=== PATIENT | male | born 1950 | race Caucasian/White ===

== ENCOUNTER 2017-12-11 13:10 | Emergency (ER) | payer OTHER ==
[2017-12-11 13:44] VITALS: RESP 18
--- NOTE | 2017-12-11 14:04 | ED ---
Extremity Problem HPI - General Chief complaint: Extremity Problem,Nontraumatic Stated complaint: poss blood clot[facility] Time Seen by Provider: 12/11/17 13:52 Source: patient, RN notes reviewed Mode of arrival: ambulatory Limitations: no limitations - History of Present Illness Initial comments: This a 67-year-old male presents emergency Department chief complaint right leg pain. Patient states she's been having intermittent pain sometimes worse with movement. Patient states that [facility] told [facility] come in to rule out any evidence of blood clot. He states she's been off his Plavix or aspirin because he had recent surgery on his right carotid and he had a UTI that he hematuria. Patient states that he's had no prior DVTs. Denies any calf pain no leg swelling no discoloration. He states he does occasionally has a shooting pain and occasional paresthesia. Denies any back pain. - Related Data Home Medications Medication Instructions Recorded Confirmed Aspirin [Adult Low Dose Aspirin EC] 81 mg PO DAILY 12/11/17 12/11/17 Clopidogrel [Plavix] 75 mg PO DAILY 12/11/17 12/11/17 Enalapril [Vasotec] 2.5 mg PO DAILY 12/11/17 12/11/17 Furosemide [Lasix] 40 mg PO DIRECTED 12/11/17 12/11/17 Isosorbide Mononitrate [Isosorbide 30 mg PO DAILY 12/11/17 12/11/17 Mononitrate ER] Metoprolol Tartrate [Lopressor] 100 mg PO BID 12/11/17 12/11/17 Rosuvastatin Calcium [Crestor] 5 mg PO HS 12/11/17 12/11/17 Tamsulosin [Flomax] 0.4 mg PO DAILY 12/11/17 12/11/17 Allergies Allergy/AdvReac Type Severity Reaction Status Date / Time No Known Allergies Allergy Verified 12/11/17 14:07 Review of Systems ROS Statement: Those systems with pertinent positive or pertinent negative responses have been documented in the HPI. ROS Other: All systems not noted in ROS Statement are negative. Past Medical History Past Medical History: Coronary Artery Disease (CAD), Hypertension, Prostate Disorder Additional Past Medical History / Comment(s): "heart aneurism", edwards for urinary retention History of Any Multi-Drug Resistant Organisms: None Reported Past Surgical History: Appendectomy Additional Past Surgical History / Comment(s): carotids Past Psychological History: No Psychological Hx Reported Smoking Status: Former smoker Past Alcohol Use History: None Reported Past Drug Use History: None Reported General Exam Limitations: no limitations General appearance: alert, in no apparent distress Head exam: Present: atraumatic, normocephalic, normal inspection Neck exam: Present: normal inspection, full ROM. Absent: tenderness, meningismus, lymphadenopathy Respiratory exam: Present: normal lung sounds bilaterally. Absent: respiratory distress, wheezes, rales, rhonchi, stridor Cardiovascular Exam: Present: regular rate, normal rhythm, normal heart sounds. Absent: systolic murmur, diastolic murmur, rubs, gallop, clicks Extremities exam: Present: other (Right leg there is no tenderness, rash or swelling noted there is equal pedal pulses bilaterally lower extremities patient has full range of motion) Skin exam: Present: warm, dry, intact, normal color. Absent: rash Course Vital Signs 12/11/17 12/11/17 13:39 15:25 Temperature 97.6 F 98.0 F Pulse Rate 79 76 Respiratory 18 18 Rate Blood Pressure 135/70 137/75 O2 Sat by Pulse 98 96 Oximetry Medical Decision Making - Medical Decision Making 67-year-old male present emergency department for right leg pain. Pains are intermittent. Patient was sent to rule out blood clot. There is no evidence of DVT on sound. This pain may be related to muscle spasms or nerve pain. Patient states he doesn't have the pain currently. Patient's pedal pulses are equal bilaterally, equal color Patient will be discharged. Disposition Clinical Impression: Right leg pain Disposition: HOME SELF-CARE Condition: Stable Instructions: Leg Pain (ED) Additional Instructions: Please return to the Emergency Department if symptoms worsen or any other concerns. Referrals: Rodolfo Mckeon DO [Primary Care Provider] - 1-2 days Time of Disposition: 15:35
[2017-12-11 15:27] VITALS: BP 137/75; PULSE 76; TEMP 98
--- NOTE | 2017-12-11 15:32 | US ---
EXAMINATION TYPE: US venous doppler duplex LE RT DATE OF EXAM: 12/11/2017 3:18 PM COMPARISON: NONE CLINICAL HISTORY: Pain. Right upper lateral thigh pain SIDE PERFORMED: Right TECHNIQUE: The lower extremity deep venous system is examined utilizing real time linear array sonog liya with graded compression, doppler sonography and color-flow sonography. VESSELS IMAGED: External Iliac Vein (EIV) Common Femoral Vein Deep Femoral Vein Greater Saphenous Vein * Femoral Vein Popliteal Vein Small Saphenous Vein * Proximal Calf Veins (* superficial vessels) Right Leg: Appears negative for DVT Scanned right thigh at patient's area of concern: no abnormalities seen at this time IMPRESSION: 1. No diagnostic evidence of DVT.
== END 2017-12-11 15:50 | disposition home or self-care (01) ==
LOC: EC 13:10
DX: M79.604 Pain in right leg (principal); I25.10 Atherosclerotic heart disease of native coronary artery without angina pectoris; I10 Essential (primary) hypertension; Z87.891 Personal history of nicotine dependence; Z79.82 Long term (current) use of aspirin; Z79.01 Long term (current) use of anticoagulants; Z79.899 Other long term (current) drug therapy
CPT/HCPCS: 99283